=== PATIENT | female | born 1970 | race Caucasian/White ===

== ENCOUNTER 2020-03-07 10:55 | Day surgery (SDC) | payer OTHER ==
[~2020-03-07] VITALS: Ht 170.2 cm; Wt 79.4 kg
[~2020-03-07 10:55] MED LIST: DEXAMETHASONE SOD PHOS 4 MG/ML VIAL ONE; HYDROmorphone 2 MG/ML VIAL IV PRN; IV RINGERS,LACTATED 1000ML 1,000 ML IV SCH; LIDOCAINE 1% PF 2 ML VIAL. ID PRN; LIDOCAINE 2% PF 5 ML VIAL. ONE; MIDAZOLAM HCL/PF 2 MG/2 ML VIAL. ONE; MORPHINE SULFATE 2 MG/ML VIAL. IV PRN; ONDANSETRON PF 4 MG/2 ML VIAL. IV PRN; ONDANSETRON PF 4 MG/2 ML VIAL. ONE; PROCHLORPERAZINE 10 MG/2 ML VIAL. IV PRN; PROPOFOL 10 MG/ML (20ML) VIAL. IV ONE; SCOPOLAMINE 1.5MG PATCH. TD ONE; SUCCINYLCHOLINE 200 MG/10 ML VIAL. ONE; ceFAZolin SODIUM IV Push 1 GM VIAL. IVP PRN; fentaNYL PF VIAL 100 MCG/2 ML VIAL IV PRN; fentaNYL PF VIAL 100 MCG/2 ML VIAL ONE
[2020-03-07] MEDS ORDERED: MELO15TA6 PO (11:08)
[2020-03-07] MEDS ORDERED: PROG100C10 PO (11:08)
[2020-03-07] MEDS ORDERED: OMEP40CA45 PO (11:08)
[2020-03-07] MEDS ORDERED: VALA10008 PO (11:08)
[2020-03-07] MEDS ORDERED: REMIFENTANIL 1 MG VIAL. IV ONE (11:51)
[2020-03-07] MEDS ORDERED: LIDOCAINE 1%/EPI 1:100,000 20 ML VIAL. ONE (11:56)
[2020-03-07] MEDS ORDERED: BACITRACIN/POLYMYXIN B OPHTH OINTMENT 3.5GM TUBE. ONE (11:56)
[2020-03-07] MEDS ORDERED: EPINEPHrine VIAL 30 MG/30 ML VIAL ONE (11:56)
--- NOTE | 2020-03-07 12:45 | PDOC1 ---
History and Physical Date of Admission Date of Admission DATE: 03/07/20 TIME: 12:41 Identification/Chief Complaint Chief Complaint hyperparathyroidism History of Present Illness History of Present Illness 50 year old female with one year history of elevated calcium. Blood work consistent with primary hyperparathyroidism. 4D CT imaging showed localization to right inferior parathyroid adenoma. Patient has fatigue and broad based symptoms associated with elevated calcium. Current Medications Current Medications Current Medications Ondansetron HCl (Zofran) 4 mg PRN Q6HRS PRN IV NAUSEA/VOMITING; Start 03/07/20 at 07:00; Stop 03/08/20 at 06:59 Fentanyl Citrate (Fentanyl 2ml Vial) 25 mcg PRN Q5MIN PRN IV MILD PAIN 1-3; Start 03/07/20 at 07:00; Stop 03/08/20 at 06:59 Fentanyl Citrate (Fentanyl 2ml Vial) 50 mcg PRN Q5MIN PRN IV MODERATE TO SEVERE PAIN; Start 03/07/20 at 07:00; Stop 03/08/20 at 06:59 Morphine Sulfate (Morphine Sulfate) 1 mg PRN Q10MIN PRN IV SEVERE PAIN 7-10; Start 03/07/20 at 07:00; Stop 03/08/20 at 06:59 Ringer's Solution 1,000 ml @ 30 mls/hr Q24H IV Last administered on 03/07/20at 11:17; Start 03/07/20 at 07:00; Stop 03/07/20 at 18:59 Lidocaine HCl (Xylocaine-Mpf 1% 2ml Vial) 2 ml PRN 1X PRN ID PRIOR TO IV START; Start 03/07/20 at 07:00; Stop 03/08/20 at 06:59 Hydromorphone HCl (Dilaudid) 0.5 mg PRN Q10MIN PRN IV SEV PAIN, Second choice; Start 03/07/20 at 07:00; Stop 03/08/20 at 06:59 Prochlorperazine Edisylate (Compazine) 5 mg PACU PRN PRN IV NAUSEA, MRX1; Start 03/07/20 at 07:00; Stop 03/08/20 at 06:59 Cefazolin Sodium (Ancef) 1 gm 1X PREOP PRN IVP PRIOR TO PROCEDURE; Start 03/07/20 at 06:00; Stop 03/07/20 at 18:00 Propofol (Diprivan) 200 mg STK-MED ONCE IV ; Start 03/07/20 at 10:23; Stop 03/07/20 at 10:23; Status DC Lidocaine HCl (Lidocaine Pf 2% Vial) 5 ml STK-MED ONCE .ROUTE ; Start 03/07/20 at 10:23; Stop 03/07/20 at 10:23; Status DC Dexamethasone Sodium Phosphate (Decadron) 4 mg STK-MED ONCE .ROUTE ; Start 03/07/20 at 10:23; Stop 03/07/20 at 10:23; Status DC Ondansetron HCl (Zofran) 4 mg STK-MED ONCE .ROUTE ; Start 03/07/20 at 10:23; Stop 03/07/20 at 10:23; Status DC Succinylcholine Chloride (Anectine) 200 mg STK-MED ONCE .ROUTE ; Start 03/07/20 at 10:23; Stop 03/07/20 at 10:24; Status DC Fentanyl Citrate (Fentanyl 2ml Vial) 100 mcg STK-MED ONCE .ROUTE ; Start 03/07/20 at 10:24; Stop 03/07/20 at 10:24; Status DC Midazolam HCl (Versed) 2 mg STK-MED ONCE .ROUTE ; Start 03/07/20 at 10:24; Stop 03/07/20 at 10:24; Status DC Scopolamine (Transderm-Scop) 1 patch 1X ONCE TD ; Start 03/07/20 at 10:45; Stop 03/07/20 at 10:46; Status DC Remifentanil HCl (Ultiva) 1 mg STK-MED ONCE IV ; Start 03/07/20 at 11:51; Stop 03/07/20 at 11:52; Status DC Bacitracin/ Polymyxin B Sulfate (Polysporin Ophth) 3.5 inch STK-MED ONCE .ROUTE ; Start 03/07/20 at 11:56; Stop 03/07/20 at 11:56; Status DC Epinephrine HCl (Adrenalin) 30 mg STK-MED ONCE .ROUTE ; Start 03/07/20 at 11:56; Stop 03/07/20 at 11:56; Status DC Lidocaine/ Epinephrine (LIDOCAINE 1%-EPI 1:100,000 Multi-Dose) 20 ml STK-MED ONCE .ROUTE ; Start 03/07/20 at 11:56; Stop 03/07/20 at 11:57; Status DC Active Scripts Active Reported Valacyclovir (Valacyclovir Hcl) 1,000 Mg Tablet 1 Tab PO DAILY Progesterone (Progesterone,Micronized) 100 Mg Capsule 1 Cap PO QHS 30 Days Omeprazole 40 Mg Capsule.dr 1 Cap PO DAILY Mobic (Meloxicam) 15 Mg Tablet 1 Tab PO DAILY Allergies Allergies: Coded Allergies: promethazine (Verified Allergy, Intermediate, 03/07/20) ROS General: No: Chills, Night Sweats, Fatigue, Malaise, Appetite, Other PSYCHOLOGICAL ROS: No: Anxiety, Behavioral Disorder, Concentration difficultie, Decreased libido, Depression, Disorientation, Hallucinations, Hostility, Irritablity, Memory difficulties, Mood Swings, Obsessive thoughts, Physical abuse, Sexual abuse, Sleep disturbances, Suicidal ideation, Other Eyes: No Blurry vision, No Decreased vision, No Double vision, No Dry eyes, No Excessive tearing, No Eye Pain, No Itchy Eyes, No Loss of vision, No Photophobia, No Scotomata, No Uses contacts, No Uses glasses, No Other HEENT: No: Heacaches, Visual Changes, Hearing change, Nasal congestion, Nasal discharge, Oral lesions, Sinus pain, Sore Throat, Epistaxis, Sneezing, Snoring, Tinnitus, Vertigo, Vocal changes, Other ALLERGY AND IMMUNOLOGY: No: Hives, Insect Bite Sensitivity, Itchy/Watery Eyes, Nasal Congestion, Post Nasal Drip, Seasonal Allergies, Other Hematological and Lymphatic: No: Bleeding Problems, Blood Clots, Blood Transfusions, Brusing, Night Sweats, Pallor, Swollen Lymph Nodes, Other Breast: No New/Changing Breast Lumps, No Nipple changes, No Nipple discharge, No Other Respiratory: No: Cough, Hemoptysis, Orthopnea, Pleuritic Pain, Shortness of breath, SOB with excertion, Sputum Changes, Stridor, Tachypnea, Wheezing, Other Cardiovascular: No Chest Pain, No Palpitations, No Orthopnea, No Paroxysmal Noc. Dyspnea, No Edema, No Lt Headedness, No Other Gastrointestinal: No Nausea, No Vomiting, No Abdominal Pain, No Diarrhea, No Constipation, No Melena, No Hematochezia, No Other Neurological: No Behavorial Changes, No Bowel/Bladder ControlChng, No Confusion, No Dizziness, No Gait Disturbance, No Headaches, No Impaired Coord/balance, No Memory Loss, No Numbness/Tingling, No Seizures, No Speech Problems, No Tremors, No Visual Changes, No Weakness, No Other Physical Exam General: Alert, Oriented X3, Cooperative, No acute distress HEENT: Atraumatic, PERRLA, EOMI, Mucous membr. moist/pink Lungs: Clear to auscultation, Normal air movement Heart: S1S2, RRR, no murmurs Abdomen: Normal bowel sounds, Soft Extremities: No clubbing, No cyanosis, No edema Neuro: Normal gait, Normal speech, Cranial nerves 3-12 NL Psych/Mental Status: Mental status NL, Mood NL Vitals Vitals Vital Signs Date Time Temp Pulse Resp B/P (MAP) Pulse Ox O2 Delivery O2 Flow Rate FiO2 03/07/20 11:15 97.7 59 20 125/ 99 Room Air 97.7 VTE Prophylaxis Ordered VTE Prophylaxis Devices: Yes VTE Pharmacological Prophylaxi: Contraindicated Assessment/Plan Assessment/Plan 50 year old female with primary hyperparathyroidism localized to right inferior parathyroid adenoma. - Patient to OR today for excision of right inferior parathyroid adenoma, pos sible 4 gland exploration. Justicifation of Admission Dx: Justifications for Admission: Justification of Admission Dx: Yes AVIS TRIVEDI MD Mar 07, 2020 12:45
[2020-03-07] MEDS ORDERED: ceFAZolin SODIUM IV Push 1 GM VIAL. IVP ONE (12:51)
[2020-03-07] MEDS ORDERED: PHENYLEPHRINE 10 MG/ML VIAL. ONE (13:01)
[2020-03-07] MEDS ORDERED: DEXAMETHASONE SOD PHOS 4 MG/ML VIAL ONE (13:01)
[2020-03-07] MEDS ORDERED: GLYCOPYRROLATE 1 MG/5 ML VIAL. ONE (13:01)
[2020-03-07] MEDS ORDERED: PROPOFOL 10 MG/ML (20ML) VIAL. IV ONE (13:39)
--- NOTE | 2020-03-07 15:06 | PDOC4 ---
IMMEDIATE POST OP NOTE Date: Mar 07, 2020 Pre-Op Diagnosis primary hyperparathyroidism Post-Op Diagnosis primary hyperparathyroidism, right inferior and superior parathyroid adenomas Procedure Performed excision of right superior and inferior parathyroid adenoma Surgeon Dr. Damaris Garcia Asbestos Shingle Inspector none Anesthesiologist Dr. Canseco Anesthesia Type: General Blood Loss 5mL Specimens Obtained right inferior parathyroid gland-- hypercellular parathyroid gland, right superior parathyroid gland-- hypercellular parathyroid gland Findings 1. Small 1cm X 0.5cm parathyroid adenoma located inferior to right thyroid gland in paratracheal tissue. Hypercellular on frozen section but small. 2. Large 1.5 cm X 1.5cm parathyroid adenoma located deep to right thyroid gland, deep to recurrent laryngeal nerve in paraesophageal tissue. Hypercellular on frozen pathology 3. Recurrent laryngeal nerve on right intact and stimulated at the end of the case. Complications none Operative Note Dictation #[id number] DAMARIS GARCIA MD Mar 07, 2020 15:06
[2020-03-07] MEDS ORDERED: CELE200C PO (15:11)
[2020-03-07] MEDS ORDERED: CALC0.5C8 PO (15:11)
[2020-03-07] MEDS ORDERED: ACET325T21 PO (15:11)
[2020-03-07] MEDS ORDERED: OXYC5CAP PO (15:11)
[2020-03-07] MEDS ORDERED: CALC650T6 PO (15:11)
[2020-03-07] MEDS ORDERED: MUPI22OI2 TP (15:11)
--- NOTE | 2020-03-07 15:27 | OP ---
DATE OF SURGERY: 03/07/2020 PREOPERATIVE DIAGNOSIS: Primary hyperparathyroidism. POSTOPERATIVE DIAGNOSIS: Primary hyperparathyroidism. PROCEDURE PERFORMED: Excision of right inferior and superior parathyroid gland. SURGEON: Damaris Garcia MD ANESTHESIA: General endotracheal anesthesia. INDICATIONS FOR SURGERY: The patient is a 50-year-old female with a history of hypercalcemia with some indiscrete symptoms of fatigue and decreased mental awareness. Patient was found on further lab evaluation to have primary hyperparathyroidism that localized to the right inferior parathyroid gland. The decision was made for the patient to undergo above procedure after the risks, benefits, and alternatives of surgery were thoroughly discussed with the patient and informed consent was obtained. INTRAOPERATIVE FINDINGS: 1. A small approximately 6 x 6 mm, parathyroid gland found along the right inferior thyroid gland near the paratracheal tissue. This was found to be hypercellular on frozen pathology, but it was not very enlarged and therefore we kept continue to look for another parathyroid adenoma. 2. A large 1.5 cm hypercellular parathyroid gland found in the paraesophageal groove inferior and deep to the recurrent laryngeal nerve and more superiorly placed within the previously excised parathyroid gland. This was found to be hypercellular on frozen section. 3. The right recurrent laryngeal nerve was intact and stimulated at the end of the case. SPECIMEN: Right inferior parathyroid gland and right superior parathyroid gland was sent for frozen pathology. They both confirmed hypercellular parathyroid tissue. ESTIMATED BLOOD LOSS: 5 mL. DESCRIPTION OF THE PROCEDURE: The patient was brought back to room per Anesthesia and intubated with a nerve integrity monitor, endotracheal tube in a standard fashion. A shoulder roll was then placed on the patient's shoulders and her neck landmarks were marked. A 5 cm incision was planned in a skin crease just inferior to the cricoid cartilage. This was injected in subcutaneous fashion with 1% lidocaine with 1:100,000 epinephrine. The nerve integrity monitor also set up and verified for accuracy. This was used throughout the case for patient safety to monitor the recurrent laryngeal nerve. The patient was then prepped and draped in a standard fashion. A 15 blade was used to cut through the skin and subcutaneous tissue. I then further used the Bovie electrocautery to cut through the subcutaneous tissue and platysma. Subplatysmal flaps were then elevated superiorly to the thyroid notch, inferiorly to the sternal notch and laterally to the sternocleidomastoid muscles bilaterally. Aram retractor was then placed to retract the skin edges. The strap musculature was identified. This was at the midline using Bovie electrocautery. I then carefully dissected the strap musculature off the anterior surface of the right thyroid gland. I then carefully dissected around the inferior pole of the right thyroid gland using bipolar electrocautery. In doing so, inferior to the medial right thyroid gland, I identified what appeared to be slightly enlarged parathyroid gland. This was carefully dissected away with some surrounding fat away from the surrounding tissue with bipolar electrocautery. This measured approximately 1 x 6 mm in size. This was sent to the pathologist for frozen sectioning; although, it was found to be hypercellular on frozen sectioning, it was not very enlarged as the majority of the tissue sent was fat; therefore, I continued my dissection within the paratracheal tissue on the right inferior thyroid gland. In doing so, I identified the recurrent laryngeal nerve and I traced this superiorly underneath the deep surface of the thyroid gland. Just underneath the thyroid gland deep to the recurrent laryngeal nerve and in the paraesophageal groove, I could palpate another mass. I carefully dissected around the recurrent laryngeal nerve in this area and I identified again, what again appeared to be parathyroid tissue that was significantly enlarged measuring almost 2 cm in size. This was carefully dissected away from the surrounding tissue using bipolar electrocautery. Once it was excised, it was sent for frozen section and confirmed again to be hypercellular parathyroid tissue. The surgical bed was then thoroughly irrigated and adequate hemostasis was confirmed using bipolar electrocautery. The recurrent laryngeal nerve was again identified and stimulated at 1 milliamp at the end of the case. There was no significant bleeding after anesthesia did a prolonged Valsalva. The surgical bed was then thoroughly irrigated. The strap musculature was closed and in the midline using running suture of 3-0 Vicryl. I then removed the Aram retractor and ensured adequate hemostasis of the subplatysmal flaps. I then closed the deep dermis and platysmal layer with buried interrupted sutures of 4-0 Vicryl and a running horizontal mattress suture of 5-0 Prolene was used to close the skin edge. Triple antibiotic ointment was placed along the incision. The patient was turned back over to anesthesia and extubated without complication. Our sponge, needle, instrument counts correct at the end of the case. COMPLICATIONS: None. DISPOSITION: Stable on transfer to recovery room. DAMARIS GARCIA MD DR: Rene JOB#: [id number] / [id number]
[2020-03-07] MEDS ORDERED: fentaNYL PF VIAL 100 MCG/2 ML VIAL ONE (15:39)
[2020-03-07 16:30] VITALS: BP 93/45
[2020-03-07] MEDS ORDERED: oxyCODONE IR 5 MG TABLET ONE (16:38)
[2020-03-07] MEDS ORDERED: oxyCODONE IR 5 MG TABLET PO ONE (16:45)
[2020-03-08 10:14] LABS: CALCIUM PTH 10.6 mg/dL (8.7-10.2); CREATININE PTH 0.92 mg/dL (0.57-1.00); PHOSPHORUS PTH 2.6 mg/dL (3.0-4.3); PTH INTACT 11 pg/mL (15-65)
--- NOTE | 2020-03-08 15:08 | PATHOLOGY ---
[facility] Accession Number: [id number] . 01 Material submitted: . PART A: parathyroid gland - RIGHT INFERIOR PARATHYROID,FS. Modifiers: right, inferior PART B: parathyroid gland - RIGHT INFERIOR PARATHYROID #2,FS. Modifiers: right, inferior . 02 Frozen section diagnosis: . INTRAOPERATIVE CONSULTATION WITH FROZEN SECTION: (Tuyet Power M.D.) FSA1. Right inferior parathyroid, excision: - Hypercellular parathyroid tissue. . The results are reported to Dr. Garcia in the operating room. (JPM:pit 03/07/2020) . FSB1. Right inferior parathyroid #2: - Hypercellular parathyroid tissue (285 mg). . The results are reported to Dr. Garcia in the operating room. (JPM/db; 03/07/2020) . FROZEN SECTION GROSS DESCRIPTION A. The specimen is received fresh for intraoperative consultation and is designated "right inferior parathyroid". This consists of an ovoid segment of yellow and reddish-brown soft tissue, weighing 0.201 grams and measuring up to 1.1 cm in greatest dimension. This is submitted for frozen section as FSA1. The tissue remaining from frozen section is submitted for permanent sections as A1. (JPM:pit 03/07/2020) . B. The specimen is received fresh for intraoperative consultation and is designated "right inferior parathyroid #2". This consists of a partially torn segment of yellow-brown soft tissue measuring up to 1.3 cm in length and 0.6 cm in width, and a smaller segment of yellow-red soft tissue measuring up to 0.5 cm in greatest dimension. The specimen has a combined weight of 0.285 grams. All is submitted for frozen section as FSB1. The tissue remaining from frozen section is submitted for permanent sections as B1. (JPM/db; 03/07/2020) . Frozen sections performed at [facility], [address] [place] [address], [place] [address]. JONATAN/MBR . 02 Diagnosis: A. Parathyroid and attached fibroadipose tissue, right inferior parathyroid #1: - Hypercellular parathyroid tissue. . B. Parathyroid gland and separate segment of fibroadipose tissue, right inferior parathyroid #2: - Hypercellular parathyroid tissue consistent with parathyroid adenoma (weight 285 mg). . (JPM:gino; 03/08/2020) MBR 03/08/2020 1322 Local . 02 Electronically signed: . Spencer Power MD, Pathologist NPI- [id number] . 03 Gross description: . A and B. PLEASE SEE GROSS DESCRIPTION DICTATED UNDER FROZEN SECTION. /MBR 03/07/2020 1654 Local . 02 Pathologist provided ICD-10: D35.1 . 02 CPT . 811395, [id number], 906775, 045050 Specimen Comment: A courtesy copy of this report has been sent to [phone] Specimen Comment: Report sent to / DR PALOMINO Performed at: [address] [facility] [address] [place] [id number] MD Huan Simon MD Phone: [phone] Performed at: 02 [facility] [place] [address] [place], [place] [id number] MD Spencer Power MD Phone: [phone] Performed at: [address] [facility] [address] [place] [address] [id number] MD Huan Simon MD Phone: [phone]
== END 2020-03-07 17:32 | disposition home or self-care (01) ==
LOC: SURG 10:55 → EDUNIT# 12:30 → SURG 17:32
PROVIDERS: ATTEND Otolaryngology
DX: E21.0 Primary hyperparathyroidism (principal); Z88.8 Allergy status to other drugs, medicaments and biological substances
CPT/HCPCS: 36415; 60500; 82310; 83970; A7015; J0330; J0690; J1100; J2250; J2370; J2405; J2704; J3010; J3490; J7120; J0171